=== PATIENT | male | born 1995 | race American Indian/Alaskan Native ===

== ENCOUNTER 2019-08-31 16:04 | Emergency (ER) | payer SELFPAY ==
--- NOTE | 2019-08-31 16:18 | Event Note ---
ED Screening Note Date of service: 08/31/19 Time: 16:17 ED Screening Note: Pt complains of right testicular pain x 4 days he denies any penile discharge, hematuria, or dysuria or testicular swelling/lesions This initial assessment/diagnostic orders/clinical plan/treatment(s) is/are subject to change based on patients health status, clinical progression and re- assessment by fellow clinical providers in the ED. Further treatment and workup at subsequent clinical providers discretion. Patient/guardian urged not to elope from the ED as their condition may be serious if not clinically assessed and managed. Initial orders include: US UA
[2019-08-31 16:40] LABS: Bilirubin,Urine NEG (Negative); Blood,Urine NEG (Negative); Color,Urine Yellow (Yellow); Mucus,Urine FEW /HPF; Protein,Urine <15 mg/dL mg/dL (Negative); Urobilinogen,Urine < 2.0 mg/dL (<2.0)
[2019-08-31 17:27] VITALS: BP 125/87
--- NOTE | 2019-08-31 17:30 | Ultrasound Report ---
ULTRASOUND SCROTUM INDICATION / CLINICAL INFORMATION: right sided pain. COMPARISON: None available. FINDINGS: The right testis measures 3. 2 x 2 by 3.1 cm, and the left testis measures 3.5 x 2.2 x 3.2 cm. Both t pearson have normal echogenicity, no internal calcifications or mass lesions. Doppler analysis reveals normal blood flow. Both epididymis appear normal, with perhaps a tiny spermatocele or epididymal cyst in the right epididymis head. No hydrocele or varicocele. IMPRESSION: 1. No significant abnormality. Signer Name: Michel Melton MD Signed: 08/31/2019 5:26 PM Workstation Name: [id number]
--- NOTE | 2019-08-31 18:09 | Emergency Department Report ---
ED Male HPI - General Chief complaint: Urogenital-Male Stated complaint: GROAN PAIN Time Seen by Provider: 08/31/19 16:15 Source: patient, RN notes reviewed Mode of arrival: Ambulatory Limitations: No Limitations - History of Present Illness Initial comments: During the entire history and physical, I am chaperoned by ER clinical research technician Concepcion Pino The patient is a pleasant 23-year-old gentleman who is not known to this provider previously. He does not have a local primary care doctor. He does not have chronic medical conditions. There is no family history of testicular torsion that he is aware. He presents to the ER with a few days of intermittent right-sided throbbing testicular pain. It started at the end of July. The pain encompasses the entire testicle. Sometimes it lasts for a few seconds, sometimes it lasts for a few minutes. It does not radiate anywhere. It does not have exacerbating or relieving factors that he is aware. He is not having pain at the moment. He denies heavy lifting and trauma. He denies urinary symptoms. At the moment, he has no complaints or pain. MD Complaint: testicle pain -: days(s) Location: right testicle Radiation: none Quality: aching Consistency: intermittent Improves with: none Worsens with: none denies other symptoms - Related Data Previous Rx's Medication Instructions Recorded Last Taken Type Acetaminophen [Non-Aspirin Extra 500 mg PO Q6HR PRN #30 tablet 08/31/19 Unknown Rx Strength] Ibuprofen [Motrin] 600 mg PO Q8H PRN #30 tablet 08/31/19 Unknown Rx Allergies Allergy/AdvReac Type Severity Reaction Status Date / Time No Known Allergies Allergy Unverified 08/31/19 16:09 ED Review of Systems ROS: Stated complaint: GROAN PAIN Other details as noted in HPI Constitutional: denies: fever Eyes: denies: eye discharge ENT: denies: congestion Respiratory: denies: wheezing Cardiovascular: denies: chest pain Gastrointestinal: denies: abdominal pain Genitourinary: testicular pain (see history of present illness), other. denies: urgency, dysuria, frequency, hematuria, testicular mass Musculoskeletal: denies: back pain Skin: denies: lesions Neurological: denies: weakness Hematological/Lymphatic: denies: easy bleeding ED Past Medical Hx - Past Medical History Previous Medical History?: No - Surgical History Past Surgical History?: No - Social History Smoking Status: Never Smoker Substance Use Type: None - Medications Home Medications: Home Medications Medication Instructions Recorded Confirmed Last Taken Type Acetaminophen [Non-Aspirin Extra 500 mg PO Q6HR PRN #30 tablet 08/31/19 Unknown Rx Strength] Ibuprofen [Motrin] 600 mg PO Q8H PRN #30 tablet 08/31/19 Unknown Rx ED Physical Exam - General Limitations: No Limitations General appearance: alert, in no apparent distress - Head Head exam: Present: atraumatic, normocephalic - Eye Eye exam: Present: normal appearance, EOMI. Absent: nystagmus - ENT ENT exam: Present: normal exam, normal orophraynx, mucous membranes moist, normal external ear exam - Neck Neck exam: Present: normal inspection, full ROM. Absent: tenderness, meningismus - Respiratory Respiratory exam: Present: normal lung sounds bilaterally. Absent: respiratory distress - Cardiovascular Cardiovascular Exam: Present: regular rate, normal rhythm, normal heart sounds. Absent: bradycardia, tachycardia, irregular rhythm, systolic murmur, diastolic murmur, rubs, gallop - GI/Abdominal GI/Abdominal exam: Present: soft. Absent: distended, tenderness, guarding, rebound, rigid, pulsatile mass - Rectal Rectal exam: Present: deferred - exam: Present: normal inspection, other (there is normal testicular lie. There is normal cremasteric reflex. There is no testicular tenderness. There is no testicular swelling). Absent: testicular tenderness, urethral discharge External exam: Present: normal external exam, other (chaperoned by Concepcion Pino). Absent: lacerations, ecchymosis - Extremities Exam Extremities exam: Present: normal inspection, full ROM, other (2+ pulses noted in the bilateral upper and lower extremities. The pelvis is stable. There is no long bony tenderness. The muscular compartments are soft. There is no redness, pus, streaking or erythema.). Absent: pedal edema, calf tenderness - Back Exam Back exam: Present: normal inspection. Absent: tenderness, CVA tenderness (R), CVA tenderness (L), paraspinal tenderness, vertebral tenderness - Neurological Exam Neurological exam: Present: alert, normal gait, other (there is no facial droop. The tongue is midline. Extraocular movements are intact bilaterally. Speaking in full sentences. Hearing is grossly intact. 5 out of 5 strength bilateral upper and lower extremities. Sensation is intact to light touch bilateral upper and lower extremities.) - Psychiatric Psychiatric exam: Present: normal affect, normal mood - Skin Skin exam: Present: warm, dry, intact, normal color. Absent: rash ED Course Vital Signs 08/31/19 08/31/19 16:09 17:25 Temperature 97.7 F Pulse Rate 86 91 H Respiratory 20 16 Rate Blood Pressure 140/114 Blood Pressure 125/87 [Left] O2 Sat by Pulse 98 96 Oximetry ED Medical Decision Making - Lab Data Vital Signs 08/31/19 08/31/19 16:09 17:25 Temperature 97.7 F Pulse Rate 86 91 H Respiratory 20 16 Rate Blood Pressure 140/114 Blood Pressure 125/87 [Left] O2 Sat by Pulse 98 96 Oximetry Lab Results 08/31/19 Range/Units 16:24 Urine Color Yellow (Yellow) Urine Turbidity Clear (Clear) Urine pH 5.0 (5.0-7.0) Ur Specific [place] 1.031 H (1.003-1.030) Urine Protein <15 mg/dl (Negative) mg/dL Urine Glucose (UA) Neg (Negative) mg/dL Urine Ketones Neg (Negative) mg/dL Urine Blood Neg (Negative) Urine Nitrite Neg (Negative) Urine Bilirubin Neg (Negative) Urine Urobilinogen < 2.0 (<2.0) mg/dL Ur Leukocyte Esterase Neg (Negative) Urine WBC (Auto) 1.0 (0.0-6.0) /HPF Urine RBC (Auto) 1.0 (0.0-6.0) /HPF Urine Mucus Few /HPF - Radiology Data Radiology results: report reviewed, image reviewed Print Report Referring Physician: FABY BULL Patient Name: JANINA CASTANEDA Date of : 1995 Sex: Male Report Date: 2019-08-31 Report Status: Finalized Findings [facility] [address] [place] [address] Ultrasound Report Signed Patient: JANINA CASTANEDA MR#: [id number] : 1995 Acct:[id number] Age/Sex: 23 / M ADM Date: 08/31/19 Loc: ED Attending Dr: Ordering Physician: FABY BULL Date of Service: 08/31/19 Procedure(s): US testicular doppler comp Accession Number(s): [id number] cc: FABY ML ULTRASOUND SCROTUM INDICATION / CLINICAL INFORMATION: right sided pain. COMPARISON: None available. FINDINGS: The right testis measures 3. 2 x 2 by 3.1 cm, and the left testis measures 3.5 x 2.2 x 3.2 cm. Both testes have normal echogenicity, no internal calcifications or mass lesions. Doppler analysis reveals normal blood flow. Both epididymis appear normal, with perhaps a tiny spermatocele or epididymal cyst in the right epididymis head. No hydrocele or varicocele. IMPRESSION: 1. No significant abnormality. Signer Name: Michel Melton MD Signed: 08/31/2019 5:26 PM Workstation Name: [id number] Transcribed By: JULIO CÉSAR Dictated By: Michel Melton MD Electronically Authenticated By: Michel Melton MD Signed Date/Time: 08/31/19 2686 - Medical Decision Making Differential diagnosis, including but not limited to: Orchitis, epididymitis, torsion, intermittent torsion, sprain, strain Assessment and plan: 23-year-old gentleman who is pain free at the moment, with history of intermittent right-sided testicular pain. He is not having pain at the moment, he has normal testicular lie, no testicular tenderness, and a normal cremasteric reflex. His physical examination is within normal limits. His urinalysis is within normal limits. His ultrasound is unremarkable. He is resting comfortably and in no acute distress. At the moment, the patient does not have an emergent medical or surgical condition at this time. We discussed the need for him to follow up closely with an outpatient urologist to evaluate for possible intermittent torsion. He understands that he needs to come back to the emergency room right away if he develops recurrent pain does not subside He was specifically counseled that failure to follow up in a close fashion may result infertility issues. Critical care attestation.: If time is entered above; I have spent that time in minutes in the direct care of this critically ill patient, excluding procedure time. ED Disposition Clinical Impression: Testicular pain, unspecified Disposition: DC-01 TO HOME OR SELFCARE Is pt being admited?: No Does the pt Need Aspirin: No Condition: Stable Additional Instructions: Rest, avoid heavy lifting, and avoid strenuous physical activities. Wear supportive briefs/underwear. Avoid loosefitting underwear. Follow up closely with an outpatient urology specialist, preferably within the next 5-7 days. If pain recurs/returns, please return to the emergency room right away for repeat evaluation. Take the pain medications as needed and/or directed. Please return to the emergency room right away with new, worsening or different symptoms, or symptoms not present on the initial emergency room evaluation. Referrals: PAVEL LOUIS MD [Staff Physician] - 3-5 Days [facility] [Provider Group] - 3-5 Days
== END 2019-08-31 19:14 | disposition home or self-care (01) ==
LOC: ED 16:04
DX: N50.811 Right testicular pain (principal); Z79.899 Other long term (current) drug therapy
CPT/HCPCS: 81001; 93975